=== PATIENT | female | born 1990 | race Caucasian/White ===

== ENCOUNTER 2019-06-08 08:37 | Inpatient (IN) | payer BC ==
[2019-06-08] MEDS ORDERED: Sodium Chloride 0.9% 10 ML Syringe FLUSH PRN (09:15)
[2019-06-08] MEDS: Acetaminophen 325 MG Tab PO PRN ×3 (10:37→21:10)
[2019-06-08] MEDS ORDERED: Lactated Ringers 1,000 ML IV SCH ×2 (10:45→13:45)
--- NOTE | 2019-06-08 11:28 | US ---
Biophysical profile (multiple gestation): Multiple real-time images were obtained. Comparison: Previous obstetrical ultrasounds are available, most recent exam is 05/12/19. Dates: Twin A: Current ultrasound: NICK 07/07/19, gestational age 35 weeks 6 days Earliest ultrasound (02/19/19): NICK 07/06/19, gestational age 36 weeks 0 days Twin B: Current ultrasound: NICK 07/19/19, gestational age 34 weeks 1 day Earliest ultrasound (02/19/19): NICK 07/07/19, gestational age 35 weeks 6 days Twin A: presentation: Breech and inferior to twin B Placenta: Anterior Amniotic fluid: Single deepest pocket is 6.2 cm Twin B: presentation: Transverse and superior to twin A Placenta: Anterior Amniotic fluid: Deepest pocket of 4.2 cm Measurements (twin A): BPD: 8.62 cm - 34 weeks 6 days Head circumference: 31.52 cm - 35 weeks 3 days Abdominal circumference: 32.83 cm - 36 weeks 6 days Femur length: 7.02 cm - 36 weeks 0 days Estimated weight: 2870 g (6 lbs. 5 oz.), estimated weight at the 60th percentile for age by current ultrasound Heart rate: 144 bpm Measurements (twin B): BPD: 8.26 cm - 33 weeks 2 days Head circumference: 30.68 cm - 34 weeks 2 days Abdominal circumference: 29.78 cm - 33 weeks 6 days Femur length: 6.74 cm - 34 weeks 5 days Estimated weight: 2326 g (5 lbs. 2 oz.), estimated weight at 39th percentile for age by current ultrasound Heart rate: 156 bpm Cervical length: Not well seen, not measured Biophysical profile: Twin A: movement 2, breathing movement 2, tone 2, amniotic fluid volume 2 Twin B: movement 2, breathing movement 0, tone 2, amniotic fluid volume 2 Impression: 1. Twin . Position as noted above. Dates as noted above. 2. Twin A has biophysical profile score of 8 out of 8. 3. Twin B has biophysical profile score of 6 out of 8. Diagnostic code #5
--- NOTE | 2019-06-08 12:28 | CR ---
Chest: Portable view of the chest was obtained. Comparison: No prior chest imaging. Heart size and mediastinum are normal. Lungs are clear. Bony structures are grossly intact. Impression: 1. Nothing acute is identified on portable chest x-ray. Diagnostic code #1
[2019-06-08] MEDS ORDERED: Sodium Chloride 0.9% 1,000 ML IV ONE (12:48)
[2019-06-08] MEDS ORDERED: Nalbuphine 10 MG/1 ML Vial IVPUSH PRN (13:36)
[2019-06-08] MEDS ORDERED: Acetaminophen 325 MG Tab PO PRN (13:36)
[2019-06-08] MEDS: Dextrose 5%-Lactated Ringers 1,000 ML IV SCH ×2 (14:01→21:08)
--- NOTE | 2019-06-08 19:49 | PCM.LDHP ---
L&D History of Present Illness - General Date of Service: 06/08/19 Admit Problem/Dx: Patient Status Order with Admit Dx/Problem 06/08/19 09:15 Patient Status [ADT] Routine 06/08/19 13:36 Patient Status [ADT] Routine Admission Diagnosis/Problem Admission Diagnosis/Problem Twin 06/08/19 19:31 Jackelyn is a 29-year-old 1 para 0 white female with a diamniotic, dichorionic IVF at 35 and 6/7 weeks gestational age with an NICK of who is evaluated in labor and delivery for complaints of shortness of breath, low-grade fever and feeling unwell in . Source of Information: Patient History Limitations: Reports: No Limitations - History of Present Illness Introduction:: Jackelyn is a 29-year-old 1 para 0 white female with a diamniotic, dichorionic IVF at 35 and 6/7 weeks gestational age with an NICK of who is evaluated in labor and delivery for complaints of shortness of breath, low-grade fever and feeling unwell in .She reports that symptoms started on the a.m. of 06/08/2019. She reports she's had a hard time catching her breath. When she does take a deep breath she says she has a cough associated with it. Does not report any productive cough or other infectious symptoms. Low-grade temp of 100.3 noted. Symptoms are somewhat nonspecific. She denies any pain. Specifically denies pain of infectious etiology such as sore throat, reactive cough, kidney pain or bladder pain/dysuria, denies any uterine tenderness or contractions. She has noticed swelling in bilateral lower extremities which she feels is related to her twin gestation. The patient denies any loss of vaginal fluid, bleeding. Patient reports both babies are felt to be independently active. Patient had a nonstress test 2 twins yesterday that were both reactive. She is scheduled for on 2018. She has been noted to have discordant growth between twins with smaller twin at the 3rd percentile. Incision was made to proceed with section at 36 weeks upon recommendation of Dr. Lizeth REAVES, [facility] in [place]. Patient has been followed for the last several weeks for did the discordant growth of the twins. She's had normal biophysical profiles and normal uterine artery Doppler studies. She received 2 doses of betamethasone actually 4 and 5 days ago facilitate maturation lungs. Her case is discussed with , pediatrics and he is accepting of the plan to proceed with section on 06/09/2019. On evaluation in labor and delivery patient was noted to have O2 sats were 90- 94 on room air. Her pulse was in the 80s to 90s. Blood pressures were borderline ranging in the 140s over 70s to 90s range. She looks generally well. Laboratory testing showed a uric acid 7.1, white blood count which was 13,000, LFTs were mildly elevated. Remainder of labs are normal. Patient noted to have brisk reflexes +3 over 4 and trace to 1+ pitting edema in bilateral lower extremities. Findings consistent with early preeclampsia. Checks x-ray 1 view with abdomen shielded was negative for disease. SURGICAL AIDE history: 1 para 0. Patient is NICK is 07/07/2019 by implantation of her lysed eggs with IVF. Abnormal glucose tolerance test but had a normal three-hour gtt. She is a centering patient. Her section scheduled 06/09/2019. A- and did receive RhoGAM on 03/31/2019. Patient had menarche at approximately age 12. No STI's or abnormal Pap smears noted. history patient's first visit was on 12/23/2018 at 12 weeks gestation. Weight at that time was 136. She is gained 43 pounds during the course of . Her vital signs of been stable. Fundal height growth has been appropriate for twin gestation. Patient has had ultrasounds during the course of and findings have been discordant growth between the 2 twins. laboratory testing: Blood is O- with a negative MRI screening. First hemoglobin is 13.5 g/dL. Platelets are 259,000. She is rubella immune. RPR is nonreactive. Urine culture was negative. Hepatitis B surface antigen and HIV assays were both negative. GC and chlamydia assays both. Second trimester hemoglobin was 12.5 g/dL. Platelets were 212,000. One-hour GTT was 172. Three- hour GTT was normal with a fasting blood sugar of 79. One-hour glucose was 171. To her glucose is 156. Glucose is 121. Her when necessary 03/31/2019 was nonreactive. Herpes strep screen was negative. Allergies: Oranges and strawberries which both cause swelling. Medications: 1. vitamins 1 daily Past medical history: 1. Infertility with use of IVF to get . Past surgical history: 1. Tonsillectomy and adenoidectomy 2013 2. [place] teeth extraction Family history: Mother is alive and well as is her father. Maternal grandmother is alive with a history of arthritis. Maternal grandfather is , prostate cancer and pneumonia. Paternal grandmother is secondary to Alzheimer's. Paternal grandfather is secondary to heart attacks and stroke. No family history of cancer, bleeding or blood clotting disorders, anesthesia-related problems or issues. Social history: Patient is . is Liam Mccoy. 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 She does not use any significant most alcohol drugs tobacco. Review of systems: Patient's concerns of those are expressed in history of present illness. Low-grade temperature, shortness of breath. Patient reports good independently activity. Denies any rupture membranes, contractions or. Skin: Negative Lungs: No infectious symptoms or shortness of breath Cardiovascular: No chest pain or exercise intolerance Breasts: Changes associated with . Patient plans to breast-feed. GI: Negative : Changes associated with twin gestation Musculoskeletal: Negative Neurological: Negative In general the patient is well-developed, well-nourished, pleasant female of stated age with above concerns. Blood pressure in clinic yesterday was 138/74 and 138/78. Weight was 179 with pregravid weight 136. Skin is warm dry without lesions. HEENT, neck and back within normal limits. Lungs are clear with good breath sounds in all lung anderson. Cardiovascular exam shows regular and rhythm without murmurs. Breast exam deferred at this time. Abdomen her to twin gestation with last fundal height noted in clinic to be 43.5 cm. Genital exam not performed as patient is no symptoms referable to this area.. Extremities and neurological exam are grossly within normal limits. Pain Score: 2 - Related Data Allergies/Adverse Reactions: Allergies Allergy/AdvReac Type Severity Reaction Status Date / Time orange Allergy Swelling Verified 06/08/19 09:48 strawberry Allergy Swelling Verified 06/08/19 09:48 Home Medications: Home Meds PNV95/Ferrous Fumarate/FA [ Tablet] 1 each PO DAILY 05/19/19 [History] Past Medical History Cardiovascular History: Reports: Hypertension SURGICAL AIDE History: Reports: Social & Family History - Family History Family Medical History: Noncontributory - Tobacco Use Smoking Status *Q: Never Smoker Second Hand Smoke Exposure: No - Caffeine Use Caffeine Use: Reports: Coffee, Soda - Recreational Drug Use Recreational Drug Use: No H&P Review of Systems - Review of Systems: Review Of Systems: See Below L&D Exam - Exam Exam: See Below - Vital Signs Vital Signs: Last Vital Signs Temp 37.5 C 06/08/19 18:05 Pulse 76 06/08/19 18:05 Resp 16 06/08/19 18:05 BP 129/84 06/08/19 18:05 Pulse Ox 95 06/08/19 18:05 Weight: 79.832 kg - Patient Data Lab Results Last 24 hrs: Laboratory Results - last 24 hr 06/08/19 06/08/19 06/08/19 Range/Units 09:35 09:35 09:35 WBC 13.94 H (3.98-10.04) K/mm3 RBC 3.63 L (3.98-5.22) M/mm3 Hgb 11.4 (11.2-15.7) gm/dl Hct 34.3 (34.1-44.9) % MCV 94.5 (79.4-94.8) fl MCH 31.4 (25.6-32.2) pg MCHC 33.2 (32.2-35.5) g/dl RDW Std Deviation 44.6 (36.4-46.3) fL Plt Count 162 L (182-369) K/mm3 MPV 12.2 (9.4-12.3) fl Neut % (Auto) 71.9 H (34.0-71.1) % Lymph % (Auto) 11.7 L (19.3-51.7) % [place] % (Auto) 13.2 H (4.7-12.5) % Eos % (Auto) 0.6 L (0.7-5.8) Baso % (Auto) 0.2 (0.1-1.2) % Neut # (Auto) 10.01 H (1.56-6.13) K/mm3 Lymph # (Auto) 1.63 (1.18-3.74) K/mm3 [place] # (Auto) 1.84 H (0.24-0.36) K/mm3 Eos # (Auto) 0.09 (0.04-0.36) K/mm3 Baso # (Auto) 0.03 (0.01-0.08) K/mm3 Manual Slide Review Normal smear APTT 26 (22-31) SECONDS BUN 14 (7-18) mg/dL Creatinine 0.8 (0.55-1.02) mg/dL Est Cr Clr Drug Dosing TNP Estimated GFR (MDRD) > 60 (>60) mL/min Uric Acid 7.8 H (2.6-6.0) mg/dL AST 52 H (15-37) U/L ALT 82 H (14-59) U/L Lactate Dehydrogenase 167 (81-234) U/L Urine Color (Yellow) Urine Appearance (Clear) Urine pH (5.0-8.0) Ur Specific [place] (1.005-1.030) Urine Protein (Negative) Urine Glucose (UA) (Negative) Urine Ketones (Negative) Urine Occult Blood (Negative) Urine Nitrite (Negative) Urine Bilirubin (Negative) Urine Urobilinogen (0.2-1.0) Ur Leukocyte Esterase (Negative) Urine RBC (0-5) /hpf Urine WBC (0-5) /hpf Ur Squamous Epith Cells (0-5) /hpf Urine Bacteria (FEW) /hpf Urine Mucus (FEW) /hpf 06/08/19 Range/Units 14:45 WBC (3.98-10.04) K/mm3 RBC (3.98-5.22) M/mm3 Hgb (11.2-15.7) gm/dl Hct (34.1-44.9) % MCV (79.4-94.8) fl MCH (25.6-32.2) pg MCHC (32.2-35.5) g/dl RDW Std Deviation (36.4-46.3) fL Plt Count (182-369) K/mm3 MPV (9.4-12.3) fl Neut % (Auto) (34.0-71.1) % Lymph % (Auto) (19.3-51.7) % [place] % (Auto) (4.7-12.5) % Eos % (Auto) (0.7-5.8) Baso % (Auto) (0.1-1.2) % Neut # (Auto) (1.56-6.13) K/mm3 Lymph # (Auto) (1.18-3.74) K/mm3 [place] # (Auto) (0.24-0.36) K/mm3 Eos # (Auto) (0.04-0.36) K/mm3 Baso # (Auto) (0.01-0.08) K/mm3 Manual Slide Review APTT (22-31) SECONDS BUN (7-18) mg/dL Creatinine (0.55-1.02) mg/dL Est Cr Clr Drug Dosing Estimated GFR (MDRD) (>60) mL/min Uric Acid (2.6-6.0) mg/dL AST (15-37) U/L ALT (14-59) U/L Lactate Dehydrogenase (81-234) U/L Urine Color Yellow (Yellow) Urine Appearance Clear (Clear) Urine pH 6.5 (5.0-8.0) Ur Specific [place] 1.010 (1.005-1.030) Urine Protein Negative (Negative) Urine Glucose (UA) Negative (Negative) Urine Ketones Negative (Negative) Urine Occult Blood Negative (Negative) Urine Nitrite Negative (Negative) Urine Bilirubin Negative (Negative) Urine Urobilinogen 0.2 (0.2-1.0) Ur Leukocyte Esterase 1+ H (Negative) Urine RBC 0-5 (0-5) /hpf Urine WBC 0-5 (0-5) /hpf Ur Squamous Epith Cells 0-5 (0-5) /hpf Urine Bacteria Few (FEW) /hpf Urine Mucus Few (FEW) /hpf Result Diagrams: 06/08/19 09:35 06/08/19 09:35 Problem List Initiated/Reviewed/Updated: Yes Orders Last 24hrs: Active Orders 24 hr Category Date Time Status Patient Status [ADT] Routine ADT 06/08/19 13:36 Active Communication Order [RC] ROUTINE Care 06/08/19 13:36 Active Heart Tones [RC] PER UNIT ROUTINE Care 06/08/19 13:36 Active Non Stress Test [RC] PER UNIT ROUTINE Care 06/08/19 09:15 Active Peripheral IV Care [RC] Q2HR Care 06/08/19 09:17 Active Procedure Site Prep Instruct [RC] 05 Care 06/08/19 13:36 Active Verify Patient Consent Obtain [RC] 05 Care 06/08/19 13:36 Active Vital Signs [RC] PER UNIT ROUTINE Care 06/08/19 09:15 Active Vital Signs [RC] Q2HR Care 06/08/19 13:36 Active Regular Diet [DIET] Diet 06/08/19 Dinner Active RAPID PLASMA REAGIN,RPR [CHEM] Routine Lab 06/09/19 05:00 Ordered TYPE AND SCREEN [BBK] Routine Lab 06/09/19 05:00 Ordered Acetaminophen [Tylenol] Med 06/08/19 10:32 Active 650 mg PO Q4H PRN Citric Acid/Sodium Citrate [Bicitra Solution] Med 06/09/19 06:00 Once 30 ml PO ONETIME ONE Dextrose 5%-Lactated Ringers 1,000 ml Med 06/08/19 13:30 Active IV ASDIRECTED Lactated Ringers [Ringers, Lactated] 1,000 ml Med 06/08/19 10:45 Active IV ASDIRECTED Lactated Ringers [Ringers, Lactated] 1,000 ml Med 06/08/19 13:45 Active IV ASDIRECTED Metoclopramide [Reglan] Med 06/09/19 06:00 Once 10 mg IVPUSH ONETIME ONE Nalbuphine [Nubain] Med 06/08/19 13:36 Active 10 mg IVPUSH Q2H PRN Oxytocin/Lactated Ringers [Pitocin in LR 10 Units/1,000 Med 06/09/19 07:00 Active ML] 10 unit in 1,000 ml IV ASDIRECTED Sodium Chloride 0.9% [Saline Flush] Med 06/08/19 09:15 Active 10 ml FLUSH ASDIRECTED PRN ceFAZolin [Ancef] 2 gm Med 06/09/19 07:00 Active Premix Bag 1 bag IV ONETIME PIH Panel [OM.PC] Stat Oth 06/08/19 09:15 Ordered Peripheral IV Insertion Adult [OM.PC] Urgent Oth 06/08/19 09:15 Ordered Schedule Procedure [COMM] Per Unit Routine Oth 06/08/19 13:36 Ordered Resuscitation Status Routine Resus Stat 06/08/19 09:15 Ordered Medication Orders Acetaminophen (Tylenol) 650 mg PO Q4H PRN PRN Reason: Fever Last Admin: 06/08/19 15:36 Dose: 650 mg Admin: 06/08/19 10:37 Dose: 650 mg Citric Acid/Sodium Citrate (Bicitra Solution) 30 ml PO ONETIME ONE Stop: 06/09/19 06:01 Lactated Ringer's (Ringers, Lactated) 1,000 mls @ 50 mls/hr IV ASDIRECTED YUDY Last Admin: 06/08/19 10:39 Dose: 50 mls/hr Dextrose/Lactated Ringer's (Dextrose 5%-Lactated Ringers) 1,000 mls @ 150 mls/ hr IV ASDIRECTED YUDY Last Admin: 06/08/19 14:01 Dose: 150 mls/hr Lactated Ringer's (Ringers, Lactated) 1,000 mls @ 125 mls/hr IV ASDIRECTED YUDY Cefazolin Sodium/Dextrose 2 gm (/ Premix) 50 mls @ 100 mls/hr IV ONETIME ONE Stop: 06/09/19 07:29 Oxytocin/Lactated Ringer's (Pitocin In Lr 10 Units/1,000 Ml) 10 unit in 1,000 mls @ 100 mls/hr IV ASDIRECTED YUDY; Protocol Metoclopramide HCl (Reglan) 10 mg IVPUSH ONETIME ONE Stop: 06/09/19 06:01 Nalbuphine HCl (Nubain) 10 mg IVPUSH Q2H PRN PRN Reason: Pain Sodium Chloride (Saline Flush) 10 ml FLUSH ASDIRECTED PRN PRN Reason: Keep Vein Open Assessment/Plan Comment:: 1. 35 and 67 week intrauterine , general feeling abundant well now improved with patient's stay in the hospital. Initial symptoms were shortness of breath, low-grade temperature. Noted to have borderline blood pressures initially but these have now normalized. Also found to have hyperreflexia and swelling/edema involving her face hands and lateral lower extremities. Suspect early preeclampsia. 2. Reassuring testing with BPP 6/8 and 8/8 with reassuring heart tones on frequent monitoring throughout the course of the day. 3. Diamniotic/dichorionic twin gestation with discordant growth with smaller baby at 3rd percentile. Patient is scheduled for primary section tomorrow because of breech/breech presentation. Early delivery recommended by MFKade. 4. Patient has received beta Methasone 12 milligrams IM 2 doses within the last 4 days. 5. Patient plans to breast-feed 6. Group B strep screen negative 7. Rubella immune. 8. Rh negativeRhoGAM candidate 9. Centering patient Plan: 1. Continue monitoring of pressure and heart tones over the course of next 12 hours. We'll plan for primary section in the a.m. The procedure , risks, benefits, alternatives of care discussed in detail patient. She appears understand as does her and they wished to proceed. Consent has been signed. 2. Dr. Win, pediatrics, has been informed of the plan for delivery at 36 weeks because of discordant growth. He is accepting of plan. He'll be available at the time of the . 3. Patient plans to breast-feedsupport breast-feeding decision. 4. DVT prophylaxis when in bed prior to surgery with SCDs. 5. Preparations made for surgery in the a.m. This includes labs, consent, etc. 6. Ancef 2 g IV preop for infection prophylaxis. 7. Intermittent monitoring one half hour every 4 hours during the course of the evening and night. 8. Monitor blood pressure closelyintervene if indicated.
[2019-06-09] MEDS: Acetaminophen 325 MG Tab PO PRN ×2 (02:07→05:57)
[2019-06-09] MEDS: Dextrose 5%-Lactated Ringers 1,000 ML IV SCH (03:34)
[2019-06-09] MEDS ORDERED: Metoclopramide 10 MG/2 ML SDV IVPUSH ONE (06:00)
[2019-06-09] MEDS ORDERED: Citric Acid/Sodium Citrate Solution 30 ML Cup PO ONE (06:00)
--- NOTE | 2019-06-09 06:28 | PCM.SN ---
- Free Text/Narrative Note: Evaluation on a.m. of 06/09/2019 shows patient be somewhat uncomfortable and with reports of not feeling well. She has a mild headache. Babies have been active. Her blood pressures have normalized during the course of the last 12-16 hours. Patient still has some shortness of breath mostly with lying down. He suspects this is related to that twin gestation. She has no chest pain. clinical evaluation in last 24 hours shows patient to have significant edema trace to 1+ bilateral lower extremities and hands and face. Lungs have been clear. Cardiovascular exam shows a rate in the upper limits of normal. Abdomen is nontender and protuberant with . heart monitoring has been reassuring. No significant contractions have been noted. Deep tendon reflexes are +3 over 4 in bilateral lower extremities. Laboratory testing yesterday shows platelets 162,000. Hemoglobin is 11.4. White blood count was 13.94. Uric acid was 7.8. Urine protein was negative. He was 52 and a LTA was 82. Biophysical profile was performed on 06/08/19 were 6/8 and 8/. Assessment: 1. 36 0/7 week intrauterine pregnancydiamniotic twins via IVF. 2. Discordant growth with small baby at 3rd percentileindication for delivery at this time 3. Significant worsening of symptoms including shortness of breath, swelling, increasing reflexes, general feeling of on wellness along with laboratory changes-consistent with preeclampsia. 4. Dr. Win has been contacted and is in agreement with delivery at this time. 5. She plans to breast-feed. Plan: 1. Will deliver within the next hour. 2. Will start magnesium sulfate after delivery with a 6 g bolus followed by 2 g per hour thereafter 3. Repeat laboratory testing this morning including a conference metabolic profile, uric acid and CBC. 4. Monitor blood pressure and treat any significant elevations as indicated.
[2019-06-09] MEDS ORDERED: Bupivacaine 0.5% 30 ML SDV ONE (06:47)
[2019-06-09] MEDS ORDERED: Magnesium Sulfate/Water 40 GM/1,000 ML BAG ONE (06:59)
[2019-06-09] MEDS ORDERED: Oxytocin/Lactated Ringers 10 UNIT/1,000 ML BAG IV SCH (07:00)
[2019-06-09] MEDS ORDERED: ceFAZolin 2 GM in Premix Bag 1 BAG IV ONE (07:00)
[2019-06-09] MEDS ORDERED: fentaNYL 100 MCG/2 ML SDV IVPUSH ONE (08:30)
[2019-06-09] MEDS: fentaNYL 100 MCG/2 ML SDV IVPUSH PRN ×2 (08:40→09:15)
[2019-06-09] MEDS ORDERED: fentaNYL 100 MCG/2 ML SDV ONE (08:41)
--- NOTE | 2019-06-09 08:41 | PCM.OPNOTE ---
- General Post-Op/Procedure Note Date of Surgery/Procedure: 06/09/19 Operative Procedure(s): Primary lower uterine segment transverse section through Pfannenstiel skin incision Findings: Uterus tubes and ovaries consistent with term twin gestation. Baby A-karen breech presentation, clear amniotic fluid, female infant, born at 0743 hrs., Apgars 8 and 9, grams 2800 g (6 lbs. 3 oz.) Baby BTransverse position brought transferred to a double footling breech and delivered with routine breech delivery technique, meconium-stained amniotic fluid, female , grams 1850 g, born at 0744 hrs., Apgars of 8 and 9 Pre Op Diagnosis: 1. 36-0/7 week intrauterine pregnancydiamniotic dichorionic twinsIVF pregnancydiscordant growth. 2. Preeclampsia without severe features Post-Op Diagnosis: Same Anesthesia Technique: Spinal Other Anesthesia Type: Marcaine 0.5%20 mLlocal Primary Surgeon: Kavon Maldonado Secondary Surgeon: Philip Norris Anesthesia Provider: Chiara Napoles Credit Card Specialist: Pushpa Jones Reason Credit Card Specialist Was Necessary: Retraction, assistance, patient safety and quality of care. Pathology: Placenta-clamp on cord of twin a. Fluid Replacement, Intraop: 1,500 Output, Urine Amount: 100 EBL in mLs: 100 Drain/Tube Comments:: Indwelling bladder catheter Complications: None Condition: Good Free Text/Narrative:: Intake & Output 06/08/19 06/09/19 06/09/19 22:59 06:59 14:59 Intake Total 380 Balance 380 Surgery duration: 30 minutes Surgery duration: Procedure: The patient is appropriately consented. Patient was transferred to the room and placed in a sitting position. she is appropriately consented for the procedure. Spinal anesthesia was administered. After confirmation of adequate anesthesia patient was placed in a supine position with a wedge under her right side to facilitate left lateral positioning. The patient was prepped and draped in usual fashion after Steward catheter was already placed . The anesthetic was checked and found to be adequate. 20 mL of Marcaine 0.5% was injected locally in the Pfannenstiel incision site. The Pfannenstiel skin incision was then made and carried down through skin, subcutaneous and fascial layers. The fascia was then undermined superiorly and inferiorly to allow for adequate operating room. The recti muscles midline and preperitoneal fat was bluntly dissected. Peritoneal cavity was entered longitudinally. The vesicouterine peritoneum was then incised transversely and bladder flap was developed. Myometrium was incised transversely to the level of the amniotic sac. This incision was extended bilaterally in a blunt fashion. The amniotic sac was then ruptured resulting in clear amniotic fluid. A hand is placed in the low uterine segment and the baby' s head was brought forth through the incision. Baby A was delivered as incomplete karen breech extraction technique. The nose and mouth were bulb suctioned. Baby's cord was clamped x2 cut and baby was handed off to attending energy professional Dr Win. baby B was then brought down from a transverse position to a double footling breech and was delivered again using routine breech delivery technique. It was obtained from both umbilical cords. Plastic clamp was placed on the umbilical cords of twin A. Placenta was expressed after cord blood was obtained. Uterus was then exteriorized to allow for easier closure. The cervix was assessed and found to be dilated adequately to allow egress of blood. The uterus was closed in 2 layers. The first layer a running locked suture of 0 Monocryl, the second layer a running locked vertical mattress suture of 0 Monocryl. [id number] suture was placed at mid incision to control 1 bleeder. Hemostasis confirmed at this time. Sponge instrument needle counts are correct. The uterus was returned to the abdominal cavity and lateral gutters were cleared of blood. Once again sponge needle counts are correct. The anterior abdominal wall was closed with a #1 PDS suture from angle to angle. The subcutaneous area was found to be free of any bleeders. interrupted sutures of 3-0 Monocryl were used to reapproximate the subcutaneous layer.Skin was closed with a running subcuticular stitch of 3-0 Monocryl in a vertical mattress suture fashion using a Víctor needle. Prineo mesh /glue was then applied to further approximate the incision. It should be noted that patient received 2 g of Ancef preoperatively for infection prophylaxis and had Pitocin infused after delivery of the placenta to facilitate uterine contraction. She also had sequential compression stockings in place for DVT prophylaxis. Patient was discharged from the operating room in satisfactory condition.
[2019-06-09] MEDS ORDERED: Ondansetron 4 MG/2 ML SDV IVPUSH PRN (09:08)
[2019-06-09] MEDS ORDERED: diphenhydrAMINE 50 MG/ML SDV IVPUSH PRN ×2 (09:08→09:24)
[2019-06-09] MEDS ORDERED: Naloxone 0.4 MG/ML SDV IVPUSH PRN (09:24)
[2019-06-09] MEDS ORDERED: Lanolin 100% Cream 7 GM Tube TOP PRN (09:24)
[2019-06-09] MEDS ORDERED: ePHEDrine 50 MG/ML SDV IVPUSH PRN (09:24)
[2019-06-09] MEDS ORDERED: Magnesium Sulfate/Water 40 GM/1,000 ML BAG IV SCH (09:24)
[2019-06-09] MEDS ORDERED: Ibuprofen 800 MG Tab PO SCH (09:24)
[2019-06-09] MEDS ORDERED: Ondansetron 4 MG/2 ML SDV IV PRN (09:24)
[2019-06-09] MEDS ORDERED: Acetaminophen/oxyCODONE 325-5 MG Tab PO PRN (09:24)
[2019-06-09] MEDS ORDERED: Dextrose 5%-Lactated Ringers 1,000 ML IV SCH ×2 (09:24→21:45)
[2019-06-09] MEDS ORDERED: Lactated Ringers 1,000 ML ONE (10:12)
[2019-06-09] MEDS: Ibuprofen 800 MG Tab PO SCH ×2 (14:03→21:46)
[2019-06-09] MEDS: Prenatal Multivitamin with Calcium/Folic Acid/Iron Tab PO SCH (16:07)
[2019-06-09] MEDS ORDERED: Calcium Gluconate 10% 1 GM/10 ML SDV IVPUSH ONE (21:31)
[2019-06-10] MEDS: Ibuprofen 800 MG Tab PO SCH ×3 (06:08→23:52)
[2019-06-10] MEDS ORDERED: Magnesium Sulfate/Water 40 GM/1,000 ML BAG IV SCH (10:45)
[2019-06-10] MEDS ORDERED: Acetaminophen/oxyCODONE 325-5 MG Tab PO PRN (10:56)
[2019-06-10] MEDS: Prenatal Multivitamin with Calcium/Folic Acid/Iron Tab PO SCH (10:57)
--- NOTE | 2019-06-10 11:13 | PCM48HPAN ---
Post Anesthesia Note - EVALUATION WITHIN 48HRS OF ANESTHETIC Vital Signs in Normal Range: Yes Patient Participated in Evaluation: Yes Respiratory Function Stable: Yes Airway Patent: Yes Cardiovascular Function Stable: Yes Hydration Status Stable: Yes Pain Control Satisfactory: Yes Nausea and Vomiting Control Satisfactory: Yes Mental Status Recovered: Yes Vital Signs: Last Vital Signs Temp 36.6 C 06/10/19 08:00 Pulse 86 06/10/19 08:00 Resp 14 06/10/19 08:00 BP 156/85 H 06/10/19 10:00 Pulse Ox 100 06/10/19 08:13 - COMMENTS/OBSERVATIONS Free Text/Narrative:: no anesthesia complications noted
--- NOTE | 2019-06-10 11:29 | PCM.SN ---
- Free Text/Narrative Note: Postoperative day one: Patient's vital signs stable. Her blood pressure specifically has been within normal limits. Patient is afebrile.She has a hard time walking without assistance. Feels very lightheaded. She is presently on magnesium sulfate at 2 g an hour. Blood levels have been monitored every 4 hours and slowly crept up to the high therapeutic range. Her urine output has been excellent. Steward catheter still in place. Clinically patient is doing fine. She is tired In general the patient is well-developed, well-nourished, pleasant female of stated age in no acute distress. Skin is warm dry without lesions. HEENT, neck and back within normal limits. Lungs are clear with good breath sounds in all lung anderson. Cardiovascular exam shows regular and rhythm without murmurs. Abdomen is flat, soft, nontender without masses or organomegaly. Positive bowel sounds are noted. No inguinal lymphadenopathy or hernias are noted. Incision appears to be intact, dry. No evidence of hematoma, seroma or infection. Extremities and neurological exam are grossly within normal limits. Deep tendon reflexes in bilateral lower extremities are significantly decreased from before and are within normal limits. Assessment: 1.Postoperative day onestatus post primary section for delivery of twins due to discordant growth. 2. Preeclampsiaimprovingblood pressures normalizeddiuresingpresently on magnesium sulfate with improvement in neurological status. Blood pressures are normal and laboratory testing is normal. 3. Anemiasecondary to and blood loss at the time of surgery along with hemodilution. Somewhat symptomatic. Difficult to assess as patient is presently on magnesium sulfate also. Plan: 1. We will continue magnesium sulfate until at least 36 hours status post delivery and reassess at that time. 2. Continue strict I&O. DC Steward catheter and patient is ambulating well. 3. We'll reassess patient's clinical functioning status as far as ambulations concern. If unable to ambulate well without assistance may consider transfusion of 2 units packed red blood cells due to anemia. 4. Routine pain control.
[2019-06-10] MEDS ORDERED: Simethicone 80 MG Tab.Chew PO ONE (18:41)
[2019-06-10] MEDS: Simethicone 80 MG Tab.Chew PO SCH (23:52)
[2019-06-10] MEDS: Docusate Sodium 100 MG Cap PO PRN (23:52)
[2019-06-11] MEDS ORDERED: Sodium Chloride 0.9% 500 ML IV SCH (06:00)
[2019-06-11] MEDS: Ibuprofen 800 MG Tab PO SCH ×3 (06:53→21:26)
[2019-06-11] MEDS: Simethicone 80 MG Tab.Chew PO SCH ×4 (06:54→21:26)
[2019-06-11] MEDS ORDERED: Simethicone 80 MG Tab.Chew PO SCH (07:00)
[2019-06-11] MEDS: Docusate Sodium 100 MG Cap PO PRN (12:14)
[2019-06-11] MEDS ORDERED: Magnesium Hydroxide 400 MG/5 ML Susp 30 ML Cup PO PRN (21:04)
[2019-06-11] MEDS: Prenatal Multivitamin with Calcium/Folic Acid/Iron Tab PO SCH (22:43)
[2019-06-12] MEDS: Labetalol 100 MG Tab PO SCH ×5 (00:34→21:24)
[2019-06-12] MEDS: Simethicone 80 MG Tab.Chew PO SCH ×4 (06:42→21:27)
[2019-06-12] MEDS: Ibuprofen 800 MG Tab PO SCH ×3 (06:43→21:27)
[2019-06-12] MEDS: Prenatal Multivitamin with Calcium/Folic Acid/Iron Tab PO SCH (11:04)
[2019-06-12] MEDS: Acetaminophen/oxyCODONE 325-5 MG Tab PO PRN ×3 (11:04→20:25)
[2019-06-12] MEDS ORDERED: Labetalol 100 MG Tab PO SCH (14:00)
[2019-06-13] MEDS: Acetaminophen/oxyCODONE 325-5 MG Tab PO PRN ×2 (01:40→07:31)
[2019-06-13] MEDS: Ibuprofen 800 MG Tab PO SCH (06:05)
[2019-06-13] MEDS: Simethicone 80 MG Tab.Chew PO SCH ×2 (06:06→11:31)
--- NOTE | 2019-06-13 06:50 | PCM.SN ---
- Free Text/Narrative Note: Postoperative day #3. Patient is feeling better. She is status post transfusion 2 units of packed red blood cells. She is ambulating well. She feels any headache that she may have had is now resolved. She is pumping and breast-feeding which is going well. Her vital signs have normalized with the exception of her blood pressure was still borderline until labetalol was started. She is now on labetalol 100 mg by mouth 4 times a day. With this blood pressures are in the 130s over 80s generally. Patient is in good spirits. Lungs are clear with good breath sounds in all lung anderson. Cardiovascular exam shows regular rate and rhythm. Abdomen is mildly protuberant. It is soft. Positive bowel sounds are present. Incision appears to be healing well. It is dry and intact. Legs show some edema bilaterally lower portions. This is improving. Neurological exam shows deep tendon reflexes be +2/4. This is a significant improvement from admission. Assessment: 1. 36-0/7 week intrauterine diamniotic dichorionic twin gestation with discordant growth delivered on 06/09/2019 by section due to breech/ transverse position of baby's. 2. Preeclampsia with symptoms improvingblood pressure was borderline elevated and patient is now on low-dose labetalol with improvement 3. Patient is diuresing well 4. Breast feeding/pumping is going well 5. Smaller twin is in [place] at [facility] in the NICU for growth TPN. Is doing well. 6. Liver function studies have returned to normal. Blood count has increased appropriately posttransfusion. 7. Neurologically patient's reflexes are back to normal. Magnesium sulfate has been stopped. Plan: 1. Monitor patient's blood pressures, deep tendon reflexes in general medical condition today. We'll discharge home tomorrow if continued improvement is noted 2. Continue labetalol 100 mg by mouth every 6 hours for at least 1 week postdelivery and then reassess. 3. Patient is to monitor for preeclampsia symptoms. He is discussed in detail with her.
--- NOTE | 2019-06-13 06:56 | PCM.DCSUM1 ---
Discharge Summary - Hospital Course Free Text/Narrative:: Jackelyn is a 29-year-old 1 now para 0102 white female with a diamniotic , dichorionic IVF at 36 and 0/7 weeks gestational age with an NICK of 07/07/2019 who is evaluated in labor and delivery on 06/08/2019 for complaints of shortness of breath, low-grade fever and feeling unwell in .She reports that symptoms started on the a.m. of 06/08/2019. She reports she's had a hard time catching her breath. When she does take a deep breath she says she has a cough associated with it. Does not report any productive cough or other infectious symptoms. Low-grade temp of 100.3 noted. Symptoms are somewhat nonspecific. She denies any pain. Specifically denies pain of infectious etiology such as sore throat, reactive cough, kidney pain or bladder pain/ dysuria, denies any uterine tenderness or contractions. She has noticed swelling in bilateral lower extremities which she feels is related to her twin gestation. She was scheduled for a primary section on 06/09/2019 due to discordant growth with twin B at the 3rd percentile and a 24% discordance between twin A and twin B. Twin A was in breech presentation and therefore section was indicated. It became readily apparent that patient was preeclamptic with borderline elevated blood pressures, significant hyperreflexia +3 over 4 bilaterally in lower extremities. Liver function studies were minimally elevated. Patient's edema was worsened and she is having headaches. Patient underwent a section on 06/09/2019. Please see operative report for details. Postoperative patient's placed on magnesium sulfate maintaining her levels between 4 and 7. With this patient's condition remained stable. Over the course of the next 3 days her hyperreflexia returned to normal flexes. She began diuresing. Her blood pressure stayed in the borderline elevated region and therefore was started on labetalol 100 mg by mouth every 6 hours. With this she has been stable. Her other vital signs and stable and patient is been afebrile. Twin B was transferred to [facility] in [place], [place] for growth TPN as she was not feeding well in [facility] nursery[facility] Mom is also pumping and is doing well with this. Patient's pain has been under good control with ibuprofen and Percocet. At this time patient appears very stable and is ready for discharge. She is desiring discharge home. Diagnosis: Stroke: No - Discharge Data Discharge Date: 06/13/19 Discharge Disposition: Home, Self-Care 01 Condition: Good - Referral to Home Health Primary Care Physician: Kavon Maldonado MD - Patient Summary/Data Operative Procedure(s) Performed: Primary lower uterine segment transverse section through Pfannenstiel skin incision - Patient Instructions Diet: Regular Diet as Tolerated (Nursing diet with increase calories and calcium is recommended) Activity: As Tolerated (No intercourse or tampons until seen back. No lifting greater than 15 pounds or driving a car 1 week.) Driving: Do Not Drive Showering/Bathing: May Shower Wound/Incision Care: Keep Operative Site/Wound Site Clean and Dry Notify Provider of: Fever, Increased Pain, Swelling and Redness, Drainage, Nausea and/or Vomiting - Discharge Plan Prescriptions/Med Rec: Ferrous Sulfate 325 mg PO DAILY #100 tablet Home Medications: Home Meds [id number]/Ferrous Fumarate/FA [ Tablet] 1 each PO DAILY 05/19/19 [History] Acetaminophen/oxyCODONE [Percocet 325-5 MG] 1 - 2 tab PO Q4H PRN tablet [Rx] Ferrous Sulfate 325 mg PO DAILY #100 tablet 06/13/19 [Rx] Ibuprofen [Motrin] 800 mg PO Q8H tablet 06/13/19 [Rx] Labetalol [Normodyne] 100 mg PO QID tablet 06/13/19 [Rx] Vit with Ca/FA/Iron [ Plus Iron] 1 each PO DAILY tablet [Rx] Referrals: Kavon Maldonado MD [Primary Care Provider] - ([facility] Within the next 56 days) - Discharge Summary/Plan Comment DC Time >30 min.: No Discharge Summary/Plan Comment: 1. 36-0/7 week intrauterine diamniotic dichorionic twin gestation with discordant growth delivered on 06/09/2019 by section due to breech/ transverse position of baby's. 2. Preeclampsia with symptoms improvingblood pressure was borderline elevated and patient is now on low-dose labetalol with improvement 3. Patient is diuresing well 4. Breast feeding/pumping is going well 5. Smaller twin is in [place] at [facility] in the NICU for growth TPN. Is doing well. 6. Liver function studies have returned to normal. Blood count has increased appropriately posttransfusion. 7. Neurologically patient's reflexes are back to normal. Magnesium sulfate has been stopped. Discharge instructions/plan: 1. Discharge home 2. Diet, activity and follow-up discussed with patient. Recommend nursing diet with increased calories and calcium. 3. Precautions given concern increased pain, bleeding, temperature, signs/ symptoms of DVT/PE. These are discussed in detail with patient. 4. Medications per home medication was printed, discussed with and given to the patient. 5. Return to clinic-Dr. Maldonado[facility] in 5 days. Condition: Good - Patient Data Vitals - Most Recent: Last Vital Signs Temp 36.8 C 06/13/19 02:29 Pulse 80 06/13/19 02:29 Resp 16 06/13/19 02:29 BP 138/85 06/13/19 02:29 Pulse Ox 99 06/13/19 02:29 Weight - Most Recent: 74.344 kg I&O - Last 24 hours: Intake & Output 06/12/19 06/12/19 06/13/19 14:59 22:59 06:59 Output Total 1650 1350 900 Balance -1650 -1350 -900 Med Orders - Current: Current Medications Diphenhydramine HCl (Benadryl) 25 mg IVPUSH Q6H PRN PRN Reason: Pruritis Diphenhydramine HCl (Benadryl) 25 mg IVPUSH Q6H PRN PRN Reason: Itching or Nausea Docusate Sodium (Colace) 100 mg PO Q12H PRN PRN Reason: Constipation Last Admin: 06/11/19 12:14 Dose: 100 mg Emollient Ointment (Lansinoh Hpa) 0 gm TOP ASDIRECTED PRN PRN Reason: Sore Nipples Ephedrine Sulfate (Ephedrine Sulfate) 5 mg IVPUSH SEECOMMENT PRN PRN Reason: Other Fentanyl (Sublimaze) 50 mcg IVPUSH ASDIRECTED PRN PRN Reason: Pain Last Admin: 06/09/19 09:15 Dose: 50 mcg Magnesium Sulfate (Magnesium Sulfate In Water Premix) 40 gm in 1,000 mls @ 40 mls/hr IV ASDIRECTED [facility] Sodium Chloride (Normal Saline) 500 mls @ 125 mls/hr IV ASDIRECTED [facility] Last Admin: 06/11/19 07:48 Dose: 125 mls/hr Ibuprofen (Motrin) 800 mg PO Q8H [facility] Last Admin: 06/13/19 06:05 Dose: 800 mg Labetalol HCl (Normodyne) 100 mg PO QID [facility] Last Admin: 06/12/19 21:24 Dose: 100 mg Magnesium Hydroxide (Milk Of Magnesia) 30 ml PO BEDTIME PRN PRN Reason: Constipation Last Admin: 06/11/19 21:26 Dose: 30 ml Naloxone HCl (Narcan) 0.1 mg IVPUSH SEECOMMENT PRN PRN Reason: Respiratory Depression Ondansetron HCl (Zofran) 4 mg IVPUSH ONETIME PRN PRN Reason: Nausea/Vomiting Last Admin: 06/09/19 12:01 Dose: 4 mg Ondansetron HCl (Zofran) 4 mg IV Q8H PRN PRN Reason: Nausea/Vomiting Oxycodone/Acetaminophen (Percocet 325-5 Mg) 1 - 2 tab PO Q4H PRN PRN Reason: Pain Last Admin: 06/13/19 01:40 Dose: 1 tab Prenat Multivit/Frankfurter Inspector/Iron/Folic Ac ( Plus Iron) 1 each PO DAILY [facility] Last Admin: 06/12/19 11:04 Dose: 1 each Simethicone (Simethicone) 160 mg PO QIDACANDBED [facility] Last Admin: 06/13/19 06:06 Dose: 160 mg Discontinued Medications Acetaminophen (Tylenol) 650 mg PO Q4H PRN PRN Reason: Fever Last Admin: 06/09/19 05:57 Dose: 650 mg Acetaminophen (Tylenol) 650 mg PO Q4H PRN PRN Reason: Pain/Fever Bupivacaine HCl (Marcaine 0.5%) Confirm Administered Dose 30 ml .ROUTE .STK-MED ONE Stop: 06/09/19 06:48 Last Admin: 06/09/19 07:39 Dose: 20 ml Calcium Gluconate (Calcium Gluconate) 1 gm IVPUSH ONETIME ONE Stop: 06/09/19 21:32 Last Admin: 06/10/19 14:10 Dose: Not Given Citric Acid/Sodium Citrate (Bicitra Solution) 30 ml PO ONETIME ONE Stop: 06/09/19 06:01 Last Admin: 06/09/19 06:37 Dose: 30 ml Fentanyl (Sublimaze) Confirm Administered Dose 100 mcg .ROUTE .STK-MED ONE Stop: 06/09/19 08:42 Last Admin: 06/09/19 09:00 Dose: Not Given Fentanyl (Sublimaze) 100 mcg IVPUSH ONETIME ONE Stop: 06/09/19 08:31 Last Admin: 06/10/19 08:07 Dose: Not Given Lactated Ringer's (Ringers, Lactated) 1,000 mls @ 50 mls/hr IV ASDIRECTED [facility] Last Admin: 06/08/19 10:39 Dose: 50 mls/hr Dextrose/Lactated Ringer's (Dextrose 5%-Lactated Ringers) 1,000 mls @ 150 mls/ hr IV ASDIRECTED [facility] Last Admin: 06/09/19 03:34 Dose: 150 mls/hr Sodium Chloride (Normal Saline) 1,000 mls @ 999 mls/hr IV ONETIME ONE Stop: 06/08/19 13:48 Last Admin: 06/08/19 12:56 Dose: 999 mls/hr Lactated Ringer's (Ringers, Lactated) 1,000 mls @ 125 mls/hr IV ASDIRECTED [facility] Last Admin: 06/09/19 06:42 Dose: 125 mls/hr Cefazolin Sodium/Dextrose 2 gm (/ Premix) 50 mls @ 100 mls/hr IV ONETIME ONE Stop: 06/09/19 07:29 Last Admin: 06/10/19 08:06 Dose: Not Given Oxytocin/Lactated Ringer's (Pitocin In Lr 10 Units/1,000 Ml) 10 unit in 1,000 mls @ 100 mls/hr IV ASDIRECTED [facility]; Protocol Magnesium Sulfate (Magnesium Sulfate In Water Premix) Confirm Administered Dose 40 gm in 1,000 mls @ as directed .ROUTE .STK-MED ONE Stop: 06/09/19 07:00 Last Admin: 06/09/19 08:21 Dose: 50 mls/hr Dextrose/Lactated Ringer's (Dextrose 5%-Lactated Ringers) 1,000 mls @ 125 mls/ hr IV ASDIRECTED [facility] Stop: 06/09/19 17:23 Last Admin: 06/09/19 10:21 Dose: 75 mls/hr Magnesium Sulfate (Magnesium Sulfate In Water Premix) 40 gm in 1,000 mls @ 50 mls/hr IV ASDIRECTED [facility] Last Admin: 06/09/19 23:55 Dose: 50 mls/hr Lactated Ringer's (Ringers, Lactated) Confirm Administered Dose 1,000 mls @ as directed .ROUTE .STK-MED ONE Stop: 06/09/19 10:13 Last Admin: 06/10/19 08:08 Dose: Not Given Dextrose/Lactated Ringer's (Dextrose 5%-Lactated Ringers) 1,000 mls @ 75 mls/ hr IV ASDIRECTED [facility] Last Admin: 06/09/19 22:00 Dose: 75 mls/hr Ibuprofen (Motrin) 800 mg PO Q8H [facility] Last Admin: 06/10/19 08:07 Dose: Not Given Labetalol HCl (Normodyne) 100 mg PO Q6HR [facility] Last Admin: 06/12/19 06:46 Dose: 100 mg Labetalol HCl (Normodyne) 100 mg PO Q8H [facility] Metoclopramide HCl (Reglan) 10 mg IVPUSH ONETIME ONE Stop: 06/09/19 06:01 Last Admin: 06/09/19 06:37 Dose: 10 mg Nalbuphine HCl (Nubain) 10 mg IVPUSH Q2H PRN PRN Reason: Pain Oxycodone/Acetaminophen (Percocet 325-5 Mg) 2 tab PO Q4H PRN PRN Reason: Pain (moderate 4-6) Last Admin: 06/10/19 10:54 Dose: 1 tab Oxycodone/Acetaminophen (Percocet 325-5 Mg) 1 tab PO Q4H PRN PRN Reason: Pain Simethicone (Simethicone) 160 mg PO QIDACANDBED ONE Stop: 06/10/19 18:42 Last Admin: 06/10/19 18:58 Dose: 160 mg Sodium Chloride (Saline Flush) 10 ml FLUSH ASDIRECTED PRN PRN Reason: Keep Vein Open
[2019-06-13] MEDS: Labetalol 100 MG Tab PO SCH (09:55)
[2019-06-13] MEDS: Prenatal Multivitamin with Calcium/Folic Acid/Iron Tab PO SCH (09:55)
== END 2019-06-13 11:30 | disposition home or self-care (01) | DRG 540 ==
LOC: JD.OBCHECK 08:37 → JD.OB 08:38 → JD.OBCHECK 13:36 → JD.OB 13:36
PROVIDERS: ADMIT Obstetrics & Gynecology; ATTEND Obstetrics & Gynecology
PROC: 10D00Z1 Extraction of Products of Conception, Low, Open Approach (ICD-10-PCS; principal; 2019-06-09)
PROC: 30233N1 Transfusion of Nonautologous Red Blood Cells into Peripheral Vein, Percutaneous Approach (ICD-10-PCS; 2019-06-09)
DX: O30.043 Twin pregnancy, dichorionic/diamniotic, third trimester (principal); O77.0 Labor and delivery complicated by meconium in amniotic fluid; O32.8XX0 Maternal care for other malpresentation of fetus, not applicable or unspecified; O11.4 Pre-existing hypertension with pre-eclampsia, complicating childbirth; D62 Acute posthemorrhagic anemia; O99.03 Anemia complicating the puerperium; Z3A.35 35 weeks gestation of pregnancy; Z37.2 Twins, both liveborn
CPT/HCPCS: 01961; 36415; 36430; 59025; 71045; 71045-26; 76816; 76818; 76818-26; 80053; 81001; 82565; 83615; 83735; 84450; 84460; 84520; 84550; 85025; 85461; 85730; 86592; 86850; 86870; 86900; 86901; 86922; 96360; 96361; A9270-GY; J0690; J1885; J2270; J2370; J2405; J2590; J2710; J2765; J2790; J3010; J3475; J3490; J7040; J7042; J7120; P9016

== ENCOUNTER 2025-05-11 02:48 | Inpatient (IN) | payer OTHER ==
[2025-05-11] MEDS ORDERED: Nalbuphine 10 MG/1 ML Vial IVPUSH PRN (03:17)
[2025-05-11] MEDS ORDERED: Ondansetron 4 MG/2 ML SDV IVPUSH PRN (03:17)
[2025-05-11 03:37] LABS: BASOPHILS ABSOLUTE AUTO 0.1 K/mm3 (0.0-0.2); BASOPHILS PERCENT AUTO 0.3 % (0.0-1.0); EOSINOPHILS ABSOLUTE AUTO 0.1 K/mm3 (0.0-0.4); EOSINOPHILS PERCENT AUTO 0.7 % (0.0-6.0); IMMATURE GRAN ABSOLUTE AUTO 0.09 K/mm3 (0.00-0.05); IMMATURE GRAN PERCENT AUTO 0.5 % (0.0-0.4); LYMPHOCYTES ABSOLUTE AUTO 2.8 K/mm3 (1.0-4.8); LYMPHOCYTES PERCENT AUTO 15.4 % (24.0-44.0); MEAN PLATELET VOLUME 11.2 fl (9.4-12.3); MONOCYTES ABSOLUTE AUTO 1.3 K/mm3 (0.0-0.8); MONOCYTES PERCENT AUTO 7.3 % (0.0-8.0); NEUTROPHILS ABSOLUTE AUTO 13.6 K/mm3 (1.8-7.7); NEUTROPHILS PERCENT AUTO 75.8 % (41.0-71.0); NRBC ABSOLUTE 0.00 (0.00-0.02); NRBC PERCENT 0.0 % (0.0-0.2); PLATELET COUNT,PLT 180 K/mm3 (150-400); RED BLOOD CELL COUNT 4.48 M/mm3 (4.10-5.30); WHITE BLOOD CELL COUNT,WBC 17.91 K/mm3 (3.9-11.3)
[2025-05-11] MEDS: Lactated Ringers 1,000 ML IV SCH (03:40)
[2025-05-11] MEDS ORDERED: diphenhydrAMINE 50 MG/ML SDV IVPUSH PRN (04:11)
[2025-05-11] MEDS: Bupivacaine/fentaNYL/NS 100 ML Bag EPIDUR PRN (04:25)
[2025-05-11] MEDS: fentaNYL 100 MCG/2 ML SDV EPIDUR PRN (04:31)
[2025-05-11] MEDS: ePHEDrine 50 MG/ML SDV IVPUSH PRN (05:16)
[2025-05-11] MEDS ORDERED: ePHEDrine 50 MG/ML SDV ONE (07:00)
[2025-05-11] MEDS: Oxytocin/0.9 % Sodium Chloride 30 UNIT/500 ML BAG IV SCH (08:40)
[2025-05-11] MEDS: Witch Hazel Medicated Pads 40/Jar TOP PRN (11:17)
[2025-05-11] MEDS: Benzocaine/Menthol 20%-0.5% Spray 78 GM Cannister TOP PRN (11:18)
== END 2025-05-12 10:05 | disposition home or self-care (01) | DRG 806 ==
LOC: JD.OBCHECK 02:48 → JD.OB 02:50 → JD.OBCHECK 02:58 → OBSVTOIN 08:40 → JD.OB 08:53
PROVIDERS: ADMIT Family Medicine; ATTEND Family Medicine
PROC: 10E0XZZ Delivery of Products of Conception, External Approach (ICD-10-PCS; principal; 2025-05-11)
PROC: 3E0R3BZ Introduction of Anesthetic Agent into Spinal Canal, Percutaneous Approach (ICD-10-PCS; principal; 2025-05-11)
PROC: 0KQM0ZZ Repair Perineum Muscle, Open Approach (ICD-10-PCS; principal; 2025-05-11)
PROC: 10907ZC Drainage of Amniotic Fluid, Therapeutic from Products of Conception, Via Natural or Artificial Opening (ICD-10-PCS; principal; 2025-05-11)
PROC: 30233S1 Transfusion of Nonautologous Globulin into Peripheral Vein, Percutaneous Approach (ICD-10-PCS; principal; 2025-05-11)
DX: O34.211 Maternal care for low transverse scar from previous cesarean delivery (principal); O10.92 Unspecified pre-existing hypertension complicating childbirth; Z37.0 Single live birth; Z3A.39 39 weeks gestation of pregnancy; Z79.899 Other long term (current) drug therapy; O70.1 Second degree perineal laceration during delivery
CPT/HCPCS: 01967; 36415; 51702; 59025; 59409; 85025; 85461; 86592; 86850; 86900; 86901; A9270-GY; J2003; J2791; J3010; J3490; J7120; J7999